=== PATIENT | female | born 1950 | race Caucasian/White ===

== ENCOUNTER 2018-09-13 12:15 | Emergency (ER) | payer MEDICARE ==
[2018-09-13] MEDS ORDERED: Loratadine 10 MG Tab PO ONE (12:46)
[2018-09-13] MEDS ORDERED: methylPREDNISolone Sodium Succinate 125 MG/2 ML SDV IVPUSH ONE (12:46)
[2018-09-13] MEDS ORDERED: Codeine/Promethazine 10-6.25 MG/5 ML Syrup 5 ML UD Cup PO ONE (12:48)
[2018-09-13] MEDS ORDERED: Codeine/Promethazine 10-6.25 MG/5 ML Syrup 5 ML UD Cup ONE (13:01)
--- NOTE | 2018-09-13 13:46 | EDM.PDOC ---
Scribed by Marita Goodwin 09/13/18 1253 for Ariel White MD ED HPI GENERAL MEDICAL PROBLEM - General Chief Complaint: Respiratory Problem Stated Complaint: COLD Time Seen by Provider: 09/13/18 12:38 Source of Information: Reports: Patient, RN, RN Notes Reviewed History Limitations: Reports: No Limitations - History of Present Illness INITIAL COMMENTS - FREE TEXT/NARRATIVE: Patient presents to ER with complaint that she has a very congested cough for the last couple of days. She has had fever and chills at home. She is afebrile here. Coughs up green mucous. Denies nausea, vomiting or diarrhea. She states her whole body aches. She has been taking Zyrtec at home. She has been taking over the counter 'Severe cold/flu night/day' syrup but it isn't helping and she did not take any this morning. Denies chest pain, shortness of breath or edema. Onset: Gradual Duration: Getting Worse Location: Reports: Chest Quality: Reports: Ache Severity: Mild Improves with: Reports: None Worsens with: Reports: None Associated Symptoms: Reports: No Other Symptoms - Related Data Allergies Allergy/AdvReac Type Severity Reaction Status Date / Time No Known Allergies Allergy Verified 09/13/18 12:32 Home Meds: Home Meds Alendronate Sodium 70 mg PO WEEKLY 09/13/18 [History] Cetirizine [ZyrTEC] 10 mg PO DAILY 09/13/18 [History] Cholecalciferol (Vitamin D3) [Vitamin D3] 2,000 units PO BID 09/13/18 [History] Famotidine 40 mg PO DAILY 09/13/18 [History] Fluticasone Furoate [Flonase Sensimist] 1 spray NASBOTH DAILY 09/13/18 [History] Fluticasone Propionate [Flovent HFA] 2 puff INH DAILY 09/13/18 [History] Levocetirizine Dihydrochloride 5 mg PO DAILY 09/13/18 [History] atorvaSTATin [Lipitor] 10 mg PO DAILY 09/13/18 [History] Past Medical History HEENT History: Reports: Allergic Rhinitis, Impaired Vision Other Neuro History: essential tremors - Past Surgical History HEENT Surgical History: Reports: Tonsillectomy GI Surgical History: Reports: Appendectomy Musculoskeletal Surgical History: Reports: Other (See Below) Other Musculoskeletal Surgeries/Procedures:: bunyon surger, wrist surgery Social & Family History - Family History Family Medical History: Noncontributory - Tobacco Use Smoking Status *Q: Never Smoker - Caffeine Use Caffeine Use: Reports: Coffee - Recreational Drug Use Recreational Drug Use: No - Living Situation & Occupation Living situation: Reports: , with Spouse Occupation: Retired ED ROS GENERAL - Review of Systems Review Of Systems: ROS reveals no pertinent complaints other than HPI. ED EXAM, GENERAL - Physical Exam Exam: See Below Exam Limited By: No Limitations General Appearance: Alert, WD/WN, No Apparent Distress Eye Exam: Bilateral Eye: Normal Inspection Ears: Normal External Exam, Normal Canal, Hearing Grossly Normal, Normal TMs Nose: No Blood, Nasal Drainage (clear) Throat/Mouth: Normal Lips, Normal Teeth, Normal Gums, Normal Oropharynx (with clear postnasal drip), Normal Voice, No Airway Compromise Head: Atraumatic, Normocephalic Neck: Normal Inspection, Supple, Non-Tender, Full Range of Motion. No: Lymphadenopathy (L), Lymphadenopathy (R) Respiratory/Chest: No Respiratory Distress, No Accessory Muscle Use, Chest Non- Tender, Decreased Breath Sounds, Crackles, Other (deep cough, nonproductive). No: Rales, Rhonchi, Wheezing, Stridor Cardiovascular: Regular Rate, Rhythm, No Edema GI/Abdominal: Normal Bowel Sounds, Soft, Non-Tender Back Exam: Normal Inspection Extremities: Normal Inspection, No Pedal Edema Neurological: Alert, Oriented, No Motor/Sensory Deficits Psychiatric: Normal Affect, Normal Mood Skin Exam: Warm, Dry, Intact, Normal Color, No Rash Course - Vital Signs Last Recorded V/S: Last Vital Signs Temp 36.5 C 09/13/18 12:24 Pulse 89 09/13/18 12:24 Resp 18 09/13/18 12:24 BP 131/58 L 09/13/18 12:24 Pulse Ox 98 09/13/18 12:24 - Orders/Labs/Meds Orders: Active Orders 24 hr Category Date Time Status Chest 2V [CR] Stat Exams 09/13/18 12:45 Ordered Labs: Laboratory Tests 09/13/18 Range/Units 12:56 WBC 8.2 (5.0-10.0) 10^3/uL RBC 4.06 L (4.2-5.4) 10^6/uL Hgb 13.2 (12.0-16.0) g/dL Hct 37.5 (37.0-47.0) % MCV 92.4 (80-100) fL MCH 32.5 (27.0-34.0) pg MCHC 35.2 H (33.0-35.0) g/dL Plt Count 311 (150-450) 10^3/uL Neut % (Auto) 67.6 (42.2-75.2) % Lymph % (Auto) 20.8 (20.5-50.1) % Carbon % (Auto) 9.9 H (2-8) % Eos % (Auto) 1.2 (1.0-3.0) % Baso % (Auto) 0.5 (0.0-1.0) % Meds: Medications Discontinued Medications Generic Name Dose Route Start Last Admin Trade Name Freq PRN Reason Stop Dose Admin Loratadine 10 mg 09/13/18 12:46 09/13/18 13:03 Claritin PO 09/13/18 12:47 10 mg ONETIME ONE Administration Methylprednisolone Sodium Succinate 125 mg 09/13/18 12:46 09/13/18 13:04 Solu-Medrol IVPUSH 09/13/18 12:47 125 mg ONETIME ONE Administration Promethazine HCl/Codeine 10 ml 09/13/18 12:48 09/13/18 13:07 Phenergan With Codeine PO 09/13/18 12:49 Not Given ONETIME ONE Promethazine HCl/Codeine Confirm 09/13/18 13:01 09/13/18 13:07 Phenergan With Codeine Administered 09/13/18 13:02 Not Given Dose 5 ml .ROUTE .[facility] - Radiology Interpretation Free Text/Narrative:: CXR: hyperinflation, no focal infiltrates, see Rad. report. Departure - Departure Time of Disposition: 13:41 Disposition: Home, Self-Care 01 Condition: Good Clinical Impression: Allergic rhinosinusitis Qualifiers: Allergic rhinitis trigger: unspecified Allergic rhinitis seasonality: seasonal Qualified Code(s): J30.2 - Other seasonal allergic rhinitis Acute bronchitis Qualifiers: Bronchitis organism: unspecified organism Qualified Code(s): J20.9 - Acute bronchitis, unspecified - Discharge Information *PRESCRIPTION DRUG MONITORING PROGRAM REVIEWED*: No *COPY OF PRESCRIPTION DRUG MONITORING REPORT IN PATIENT DEYVI: No Instructions: Acute Bronchitis, Adult, Allergic Rhinitis, Adult Forms: ED Department Discharge Additional Instructions: Rx: Tessalon Perles 200mg Rx: Prednisone 20mg Take your Zyrtec 10mg one tablet twice a day for 2 weeks, then return to one tablet daily. Follow up in clinic if not improving in 2 weeks. - My Orders Last 24 Hours: My Active Orders 09/13/18 12:45 Chest 2V [CR] Stat - Assessment/Plan Last 24 Hours: My Active Orders 09/13/18 12:45 Chest 2V [CR] Stat I have read and agree with the documentation that has been completed regarding this visit. By signing this record, I attest that the documentation was completed in my physical presence and is an accurate record of the encounter.
== END 2018-09-13 13:57 | disposition home or self-care (01) ==
LOC: DL.ED 12:15
DX: J20.9 Acute bronchitis, unspecified (principal); J30.2 Other seasonal allergic rhinitis; Z79.899 Other long term (current) drug therapy
CPT/HCPCS: 36415; 71046; 85025; 96374; 99283; A9270; J2930